=== PATIENT | female | born 2000 | race Caucasian/White ===

== ENCOUNTER 2020-11-09 21:35 | Emergency (ER) | payer BC, SELFPAY ==
[2020-11-09 21:44] VITALS: BP 118/75; PULSE 138; RESP 18; TEMP 36.8; O2SAT 98
[2020-11-09 21:59] LABS: Bilirubin Small (Negative); Blood Negative (Negative); Clarity Cloudy (Clear); Glucose Negative (Negative); Ketones Negative (Negative); Leukocyte Esterase Negative (Negative); Nitrite Negative (Negative); Specific Gravity >= 1.030 (1.005-1.025); Urobilinogen 0.2 EU/dL (Up TO 0.2); pH 5.5 (5-8)
--- NOTE | 2020-11-09 21:59 | ED.GENADUL_ITS ---
Discharge Plan Disposition Patient Disposition: HOME Condition: Stable Discharge Details Clinical Impression: Nausea & vomiting Primary Care Provider: Unknown,Unknown ED Provider: Federico Rubin Home Meds and New Rx's Prescriptions: New ondansetron 4 mg tablet,disintegrating 4 mg PO Q8H PRN (Reason: nausea and vomiting) Qty: 30 RF: 0 Continued Zafemy 150-35 mcg/24 hr Patch Weekly 1 patch transdermal QWEEK RF: 0 Entyvio 300 mg Recon Soln 300 mg IV 6XW RF: 0 Discharge Instructions Instructions: Acute Nausea and Vomiting (ED) Additional Instructions: your blood work did not show any significant abnormalities at this time you were given IV fluid and zofran and felt improved follow up with your solderer dipper if you have persistent vomit, abdomen pain, or feel more ill return to the emergency department Medical Decision Making 20 yo female who states she has a history of ulcerative colitis and is treated with entyvio infusions every 6 weeks in 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 She states she has intermittent abdomen cramping as well and states that her symptoms feel similar to prior flares of her uc though it has been over a year since last. She has no tenderness now on exam, is noted to be tachycardic likely from dehydration. Will give ivf, antiemetics and evaluate for hepatitis and pancreatitis. discussed with patient her abdomen exam is reassuring and she states she has had cat scans before and would like to defer CT at this time given no tenderness on exam which I feel is reasonable. Will re assess after IVF and antiemetics. pt feels much better in terms of her nausea and would like to try drinking water. Has absolutely no abdomen tenderness on exam. Labs show no significant abnormalities at the present time. Will PO challenge and reassess patient ate and drank normally without issues and still has no pain. She is stable for d/c. I advised to f/u with her gi specialist as soon as possible and return precautions given Differential Diagnosis Differential Diagnosis: uc flare, pancreatitis, bowel obstruction Lab Data Lab results reviewed: Yes I reviewed the patient's lab results. HPI General Mode of arrival: ambulatory . Date/Time Provider Initiated Documentation: 11/09/20 21:44 . Limitations to Documentation: no limitations . Information obtained by: patient . History of Present Illness 20 year old F presents to the emergency department with the chief complaint of nausea and vomit, described as moderate, Patient started experiencing this day(s) (1) and it has been constant. No relieving factors improve symptom(s), No exacerbating factors reported . Patient notes other (intermittent abdomen cramping). Patient did receive the following treatments prior to arrival, none Related Data Home Medications Medication Instructions Recorded Confirmed Entyvio 300 mg IV 6XW 11/09/20 11/09/20 Zafemy 1 patch TRANSDERMAL QWEEK 11/09/20 11/09/20 ondansetron 4 mg PO Q8H PRN #30 tab 11/09/20 Previous Rx's Medication Instructions Recorded ondansetron 4 mg PO Q8H PRN #30 tab 11/09/20 Allergies Allergy/AdvReac Type Severity Reaction Status Date / Time No Known Allergies Allergy Unverified 11/09/20 21:50 General Stated Complaint: Abd Prob SUDARSHAN: 3 Review of Systems All systems reviewed & are unremarkable except as noted in HPI and below Constitutional Constitutional: Denies chills, Denies fever(s) and Denies weakness Cardiovascular Cardiovascular: Denies chest pain and Denies dyspnea Respiratory Respiratory: Denies cough and Denies dyspnea Genitourinary Genitourinary: Denies dysuria Neurologic Neurologic: Denies weakness [facility] Social History Smoking/Tobacco Use Status: Never Smoking risk assessment performed?: Yes Drug use: Never Substance use type: does not use Do you feel safe at home: Yes Do you feel safe in your relationship?: Yes Exam Const General: no acute distress Orientation: alert HENMT Head: normal to inspection Ears: external ears normal General nose exam: external nose normal Mouth: moist mucous membranes Eyes General: appearance normal, both eyes and all related structures Neck Neck: normal visual inspection Resp Effort & Inspection: normal respiratory effort and able to speak in complete sentences Cardio Rate: tachycardic GI Palpation: soft Skin General skin exam: no rashes or lesions noted Neuro General: patient alert and patient oriented x3 Extrem General: normal to inspection Psych Mental Status: mental status grossly normal Course Vital Signs Vital signs: Vital Signs Temperature 36.8 C 11/09/20 21:44 Pulse 138 H 11/09/20 21:44 Respiratory Rate 18 11/09/20 21:44 Blood Pressure 118/75 11/09/20 21:44 Pulse Oximetry 98 11/09/20 21:44 Temperature 36.8 C 11/09/20 21:44 Temperature Source Temporal Artery Scan 11/09/20 21:44 Pulse 138 H 11/09/20 21:44 Respiratory Rate 18 11/09/20 21:44 Respiratory Effort 11/09/20 21:46 Blood Pressure 118/75 11/09/20 21:44 Blood Pressure Position Sitting 11/09/20 21:44 Pulse Oximetry 98 11/09/20 21:44 Oxygen Delivery Method Room Air 11/09/20 21:44 Oxygen Flow Rate 0 11/09/20 21:44 Pain Level 4 11/09/20 21:44 Lab/Test Results Lab/Test Results: POC- Test(urine) Negative
[2020-11-09] MEDS: Ondansetron 4 MG/2 ML VIAL IVP (22:02)
[2020-11-09] MEDS: Normal Saline 1,000 ML 1000 ML IV (22:02)
[2020-11-09 22:03] LABS: Abs Immature Grans 0.04 10^3/uL (0.0-0.06); Absolute Basophil Count 0.04 10^3/uL (0.0-0.2); Absolute Neutrophil Count 9.93 10^3/uL (1.2-6.7); Basophils % 0.4; HCT 47.1 % (36.0-46.0); HGB 15.2 g/dL (11.2-15.7); Immature Grans % 0.4; Lymphocytes % 5.1; MCH 27.5 pg (27.0-33.0); MCHC 32.3 % (32.0-36.0); MCV 85.2 fL (80-95); Monocytes % 2.8; Neutrophils % 91.3; Nucleated RBC 0 %; Platelet Count 387 10^3/uL (130-400); RBC 5.53 10^6/uL (3.93-5.22); RDW 13.2 % (11.7-14.6); RDW-SD 40.7 fL; WBC 10.88 10^3/uL (4.4-10.8)
[2020-11-09 22:04] LABS: Absolute Lymphocyte Count 0.55 10^3/uL (1.2-3.4)
[2020-11-09 22:08] LABS: Bacteria Rare HPF (Negative); C & S Indicated? No; Crystals Negative HPF (Negative); Epithelial Cells Many HPF (Negative); Mucus Heavy (Negative); RBC 0-2 HPF (0-2); WBC 0-2 HPF (0-5)
[2020-11-09 22:12] LABS: Magnesium 1.6 mg/dL (1.8-2.4)
[2020-11-09 22:24] LABS: ALT 37 U/L (14-59); AST 15 U/L (15-37); Alkaline Phosphatase 98 U/L (46-116); Anion Gap 14.1 mmol/L (3-11); BUN 14 mg/dL (7-18); Bilirubin, Total 1.6 mg/dL (0.2-1.0); CO2 25.9 mmol/L (21.0-32.0); CREATININE 1.1 mg/dL (0.55-1.02); Calcium 9.5 mg/dL (8.5-10.1); Chloride 101 mmol/L (98-107); Glucose 121 mg/dL (74-106); Lipase 66 U/L (73-393); Potassium 3.5 mmol/L (3.5-5.1); Sodium 141 mmol/L (136-145); Total Protein 8.7 g/dL (6.4-8.2)
[2020-11-09 22:32] LABS: Bilirubin, Direct 0.3 mg/dL (0.0-0.2)
[2020-11-09 23:33] VITALS: BP 122/72; PULSE 68; RESP 16; O2SAT 98
== END 2020-11-09 23:35 | disposition home or self-care (01) ==
PROVIDERS: Emergency Provider Emergency Medicine
DX: R11.2 Nausea with vomiting, unspecified (principal)
CPT/HCPCS: 80053; 81025; 83690; 96361; 96374; 99284; 81003; 81015; 82248; 83735; 85025; 99283; J2405

== ENCOUNTER 2020-11-11 16:28 | Outpatient (REF) | payer BC, SELFPAY ==
[2020-11-11 15:59] LABS: C Diff PCR Negative (Negative)
== END 2020-11-11 16:29 | disposition home or self-care (01) ==
LOC: LBN 16:28
PROVIDERS: Visit Provider Internal Medicine Gastroenterology
DX: K50.80 Crohn's disease of both small and large intestine without complications (principal); R19.7 Diarrhea, unspecified
CPT/HCPCS: 87493